=== PATIENT | male | born 1960 | race Caucasian/White ===

== ENCOUNTER 2017-01-21 13:44 | Emergency (ER) | payer OTHER ==
[2017-01-21] MEDS ORDERED: NS 0.9% 1000 ML* 1,000 ML IV ONE (14:00)
--- NOTE | 2017-01-21 14:40 | RAD ---
INDICATION: Visual changes -resolved COMPARISON: None TECHNIQUE: Noncontrast axial source images were acquired from the skull base to the vertex. FINDINGS: Ventricles/sulci: The ventricles and cisterns are normal in size and configuration for age. Brain parenchyma: There is no focal parenchymal finding, evidence of intracranial mass, or intracranial mass effect. Intracranial hemorrhage:None. Extra-axial spaces: There are no abnormal extra axial fluid collections or evidence of extra-axial mass. Calvarium: There is no calvarial fracture or other calvarial abnormality. Scalp: There is no evidence of scalp or extracalvarial soft tissue abnormality. Paranasal sinuses/mastoid: The paranasal sinuses and mastoid air cells are clear. Other: None. IMPRESSION: NEGATIVE EXAMINATION
--- NOTE | 2017-01-21 14:40 | RAD ---
Indication: Vision abnormality. 2 views of the chest including dual energy PA views demonstrates no mediastinal shift. Heart is of normal size and configuration. Lung brown demonstrate no pleural fluid, pneumonia or pneumothorax. No change since May 21, 2016. IMPRESSION: No active cardiopulmonary disease is noted.
[2017-01-21 15:27] LABS: Hematocrit 42 % (42-52); Hemoglobin 14.2 g/dl (14.0-18.0); Mean Corpuscular HGB Conc 34 g/dl (31-36); Mean Corpuscular Hemoglobin 32 pg (27-31); Mean Corpuscular Volume 93 fL (80-94); Mean Platelet Volume 8 um3 (7.4-10.4); Red Blood Count 4.52 10^6/ul (4.0-5.4); Red Cell Distribution Width 13 % (10.5-15); White Blood Count 7.9 10^3/ul (3.5-10.8)
[2017-01-21 15:42] LABS: Albumin 3.9 g/dL (3.2-5.2); BUN/Creatinine Ratio 24.3 (8-20); EGFR African American 139.7 (>60); EGFR Non-African American 108.6 (>60); Globulin 2.6 g/dL (2-4); Potassium 3.6 mmol/L (3.5-5.0); Total Bilirubin 0.5 mg/dL (0.2-1.0); Total Protein 6.5 g/dL (6.4-8.9)
[2017-01-21 16:03] LABS: C Reactive Protein 1.29 mg/L (< 5.00); HDL Cholesterol 45.9 mg/dL
[2017-01-21 16:59] LABS: Urine Bilirubin Negative (Negative); Urine Glucose Negative (Negative); Urine Nitrite Negative (Negative)
[2017-01-21] MEDS ORDERED: Iohexol 350* (CONTRAST) 500 ML MDV IV ONE (17:34)
[2017-01-21 17:38] VITALS: BP 130/82
[2017-01-21 17:56] LABS: Erythrocyte Sed Rate 9 mm/Hr (0-20)
--- NOTE | 2017-01-21 18:32 | RAD ---
INDICATION: Visual changes-resolved COMPARISON: CT brain same date TECHNIQUE: Axial source images were acquired with coronal and sagittal reconstructions. CT angiographic technique was utilized with injection of 80 mL Omnipaque 350. FINDINGS: Aortic arch: There are no CT angiogram abnormalities of the arch or the great vessels arising from the arch. Right carotid: The internal carotid artery, carotid bifurcation, extracranial portions of the internal carotid artery, carotid artery at the skull base, carotid siphon, and carotid termination appear normal. Left carotid:The internal carotid artery, carotid bifurcation, extracranial portions of the internal carotid artery, carotid artery at the skull base, carotid siphon, and carotid termination appear normal. Right middle and anterior cerebral arteries: There are no CT angiographic abnormalities of the middle or anterior cerebral arteries. Left middle and anterior cerebral arteries: There are no CT angiographic abnormalities of the middle or anterior cerebral arteries Right vertebral: The CT angiographic appearance of the vertebral artery is normal. Left vertebral: The CT angiographic appearance of the vertebral artery is normal. Basilar artery: The basilar artery and basilar tip appear normal. Posterior cerebral arteries: The distal distribution of the right and left posterior cerebral arteries is normal. There is normal variant with origin of the right posterior cerebral artery [place]: The CT angiographic appearance of the [place] is normal. Source images show no evidence of mass or adenopathy within the neck. There are no focal parenchymal abnormalities or abnormal areas of enhancement. Incidental note is made of left shoulder arthroplasty. IMPRESSION: NO CT ANGIOGRAPHIC ABNORMALITIES. CPT II Codes: 3100F RS
--- NOTE | 2017-01-22 00:17 | ED ---
Emmanuel Rice SooYoung, scribed for Mireya Burgess MD on 01/21/17 at 1402 . Neurological HPI - HPI Summary HPI Summary: A 56 y/o M presents to ED after possible stroke onset approx 1230. Sx have spontaneously resolved. Sx began with R eye waves lasting approx 1 hour before resolving. He denies any change to his L eye. Associated sx: mild BURKS, unsteady gait. Denies: numbness, tingling, CP, SOB. Pt is under recent stress, was on the way to his sister's today. Sx are similar to previous episode that occurred at end of 10/2016, with sx lasting longer. He was not seen at a hospital that time, was seen at doctor's office, [facility] in [place]. Takes daily aspirin, Celebrex. NKA. Per , pt usually has low BP, it is elevated at bedside. - History of Current Complaint Chief Complaint: EDGeneral Stated Complaint: POSSIBLE MINI STROKE Time Seen by Provider: 01/21/17 14:01 Hx Obtained From: Patient, Family/Grain Sacker - Onset/Duration: Sudden Onset, Started hours ago, Resolved Timing: Constant Onset Severity: Mild Current Severity: None Headache Location: Diffuse (Right) Pain Intensity: 0 Pain Scale Used: 0-10 Numeric Character: Visual Changes - R eye "waves" Episode Lasting: Hours - approx 1 hour Aggravating: Stress Alleviating: Spontanious Resolution Associated Signs and Symptoms: Positive: Unsteady Gait, Visual Changes - R eye "waves", Headache - mild. Negative: Numbness - and neg tingling, Chest Pain, Shortness of Breath TPA Considered: No - sxs resolved upon initial evaluation Similar Episode/Dx as: "stroke" by PCP, no imaging or labs done - Additional Pertinent History Primary Care Physician: [facility] - Allergy/Home Medications Allergies/Adverse Reactions: Allergies Allergy/AdvReac Type Severity Reaction Status Date / Time No Known Allergies Allergy Verified 01/21/17 13:46 PMH/Surg Hx/FS Hx/Imm Hx Previously Healthy: No Endocrine/Hematology History: Reports: Hx Anticoagulant Therapy - ASA 81 qd Musculoskeletal History: Reports: Hx Arthritis, Other Musculoskeletal History - BONE SPURS IN NECK- HAD SURGERY FOR 30 YEARS AGO Sensory History: Reports: Hx Contacts or Glasses - READING GLASSES, Hx Hearing Aid - BILATERAL Opthamlomology History: Reports: Hx Contacts or Glasses - READING GLASSES Neurological History: Reports: Other Neuro Impairments/Disorders - TIA or CVA? - Surgical History Surgery Procedure, Year, and Place: 1990-LEFT HAND- [facility]. HERNIA REPAIR - [facility]. NECK SURGERY- 30 YEARS AGO- [facility]. SHOULDER - [facility]. SHOULDER REPLACEMENT- [facility]-2013 Hx Anesthesia Reactions: No Infectious Disease History: Denies: Traveled Outside the [place] in Last 30 Days - Family History Known Family History: Positive: Other - pos: [place] - sister; no FHx CVA/TIA - Social History Occupation: Employed Full-time Lives: With Family Alcohol Use: None Hx Substance Use: No Substance Use Type: Reports: None Hx Tobacco Use: Yes Smoking Status (MU): Former Smoker Amount Used/How Often: CIGARS X 20 YEARS Have You Smoked in the Last Year: No Review of Systems Negative: Fever Positive: Other - pos: R eye "waves". Negative: Blurred Vision Negative: Chest Pain Negative: Shortness Of Breath Neurological: Other - pos: unsteady gait Positive: Headache - mild. Negative: Numbness - and neg: tingling Psychological: Other - pos: recent stress, today is sister's All Other Systems Reviewed And Are Negative: Yes Physical Exam Triage Information Reviewed: Yes Vital Signs On Initial Exam: Initial Vitals Temp Pulse Resp BP Pulse Ox 98.5 F 78 16 130/78 97 01/21/17 13:46 01/21/17 13:46 01/21/17 13:46 01/21/17 13:46 01/21/17 13:46 Vital Signs Reviewed: Yes Appearance: Positive: Well-Appearing, No Pain Distress, Well-Nourished Skin: Positive: Warm, Skin Color Reflects Adequate Perfusion Head/Face: Positive: Normal Head/Face Inspection Eyes: Positive: EOMI, XAVI, Conjunctiva Clear ENT: Positive: Normal ENT inspection Neck: Positive: Supple, Nontender, Other: - no bruit Respiratory/Lung Sounds: Positive: Clear to Auscultation, Breath Sounds Present , Other - no respiratory distress Cardiovascular: Positive: RRR, Other - pulses normal, brisk capillary refill. Negative: Murmur Musculoskeletal: Positive: Strength/ROM Intact Neurological: Positive: Sensory/Motor Intact, Alert, Oriented to Person Place, Time, CN Intact II-III, Facial Symmetry, Speech Normal. Negative: Abnormal Gait , Facial Droop, Focal Deficit @, Slurred Speech Psychiatric: Positive: Normal Diagnostics - Vital Signs Vital Signs Temp Pulse Resp BP Pulse Ox 01/21/17 13:46 98.5 F 78 16 130/78 97 - Laboratory Lab Results: Lab Results 01/21/17 01/21/17 01/21/17 Range/Units 15:20 15:20 15:20 WBC 7.9 (3.5-10.8) 10^3/ul RBC 4.52 (4.0-5.4) 10^6/ul Hgb 14.2 (14.0-18.0) g/dl Hct 42 (42-52) % MCV 93 (80-94) fL MCH 32 H (27-31) pg MCHC 34 (31-36) g/dl RDW 13 (10.5-15) % Plt Count 216 (150-450) 10^3/ul MPV 8 (7.4-10.4) um3 Neut % (Auto) 64.7 (38-83) % Lymph % (Auto) 24.2 L (25-47) % Early % (Auto) 6.5 (1-9) % Eos % (Auto) 3.7 (0-6) % Baso % (Auto) 0.9 (0-2) % Absolute Neuts (auto) 5.1 (1.5-7.7) 10^3/ul Absolute Lymphs (auto) 1.9 (1.0-4.8) 10^3/ul Absolute Monos (auto) 0.5 (0-0.8) 10^3/ul Absolute Eos (auto) 0.3 (0-0.6) 10^3/ul Absolute Basos (auto) 0.1 (0-0.2) 10^3/ul Absolute Nucleated RBC 0 10^3/ul Nucleated RBC % 0 ESR 9 (0-20) mm/Hr INR (Anticoag Therapy) 1.00 (0.89-1.11) APTT 27.2 (26.0-36.3) seconds Sodium 140 (133-145) mmol/L Potassium 3.6 (3.5-5.0) mmol/L Chloride 109 (101-111) mmol/L Carbon Dioxide 25 (22-32) mmol/L Anion Gap 6 (2-11) mmol/L BUN 18 (6-24) mg/dL Creatinine 0.74 (0.67-1.17) mg/dL Est GFR ( Amer) 139.7 (>60) Est GFR (Non-Af Amer) 108.6 (>60) BUN/Creatinine Ratio 24.3 H (8-20) Glucose 92 (70-100) mg/dL Lactic Acid (0.5-2.0) mmol/L Calcium 9.0 (8.6-10.3) mg/dL Total Bilirubin 0.50 (0.2-1.0) mg/dL AST 13 (13-39) U/L ALT 10 (7-52) U/L Alkaline Phosphatase 102 (34-104) U/L Troponin I 0.00 (<0.04) ng/mL C-Reactive Protein 1.29 (< 5.00) mg/L Total Protein 6.5 (6.4-8.9) g/dL Albumin 3.9 (3.2-5.2) g/dL Globulin 2.6 (2-4) g/dL Albumin/Globulin Ratio 1.5 (1-3) Triglycerides 187 mg/dL Cholesterol 174 mg/dL LDL Cholesterol 91 mg/dL HDL Cholesterol 45.9 mg/dL Urine Color Urine Appearance Urine pH (5-9) Ur Specific [place] (1.010-1.030) Urine Protein (Negative) Urine Ketones (Negative) Urine Blood (Negative) Urine Nitrate (Negative) Urine Bilirubin (Negative) Urine Urobilinogen (Negative) Ur Leukocyte Esterase (Negative) Urine Glucose (Negative) 01/21/17 01/21/17 Range/Units 15:20 16:50 WBC (3.5-10.8) 10^3/ul RBC (4.0-5.4) 10^6/ul Hgb (14.0-18.0) g/dl Hct (42-52) % MCV (80-94) fL MCH (27-31) pg MCHC (31-36) g/dl RDW (10.5-15) % Plt Count (150-450) 10^3/ul MPV (7.4-10.4) um3 Neut % (Auto) (38-83) % Lymph % (Auto) (25-47) % Early % (Auto) (1-9) % Eos % (Auto) (0-6) % Baso % (Auto) (0-2) % Absolute Neuts (auto) (1.5-7.7) 10^3/ul Absolute Lymphs (auto) (1.0-4.8) 10^3/ul Absolute Monos (auto) (0-0.8) 10^3/ul Absolute Eos (auto) (0-0.6) 10^3/ul Absolute Basos (auto) (0-0.2) 10^3/ul Absolute Nucleated RBC 10^3/ul Nucleated RBC % ESR (0-20) mm/Hr INR (Anticoag Therapy) (0.89-1.11) APTT (26.0-36.3) seconds Sodium (133-145) mmol/L Potassium (3.5-5.0) mmol/L Chloride (101-111) mmol/L Carbon Dioxide (22-32) mmol/L Anion Gap (2-11) mmol/L BUN (6-24) mg/dL Creatinine (0.67-1.17) mg/dL Est GFR ( Amer) (>60) Est GFR (Non-Af Amer) (>60) BUN/Creatinine Ratio (8-20) Glucose (70-100) mg/dL Lactic Acid 0.9 (0.5-2.0) mmol/L Calcium (8.6-10.3) mg/dL Total Bilirubin (0.2-1.0) mg/dL AST (13-39) U/L ALT (7-52) U/L Alkaline Phosphatase (34-104) U/L Troponin I (<0.04) ng/mL C-Reactive Protein (< 5.00) mg/L Total Protein (6.4-8.9) g/dL Albumin (3.2-5.2) g/dL Globulin (2-4) g/dL Albumin/Globulin Ratio (1-3) Triglycerides mg/dL Cholesterol mg/dL LDL Cholesterol mg/dL HDL Cholesterol mg/dL Urine Color Yellow Urine Appearance Clear Urine pH 5.0 (5-9) Ur Specific [place] 1.024 (1.010-1.030) Urine Protein Negative (Negative) Urine Ketones Negative (Negative) Urine Blood Negative (Negative) Urine Nitrate Negative (Negative) Urine Bilirubin Negative (Negative) Urine Urobilinogen Negative (Negative) Ur Leukocyte Esterase Negative (Negative) Urine Glucose Negative (Negative) Result Diagrams: 01/21/17 15:20 01/21/17 15:20 Lab Statement: Any lab studies that have been ordered have been reviewed, and results considered in the medical decision making process. - Radiology CXR Xray Interpretation: No Acute Changes - IMPRESSION: No active cardiopulmonary dz. Radiology Interpretation Completed By: Radiologist - CT BRAIN CT CT Interpretation: No Acute Changes - IMPRESSION: negative exam. CT Interpretation Completed By: Radiologist HEAD/NECK CTA CT Interpretation: No Acute Changes - IMPRESSION: No CT angiographic abnormalities. CT Interpretation Completed By: Radiologist - EKG 1537 Cardiac Rate: Bradycardia - 59 bpm EKG Rhythm: Sinus Bradycardia EKG Interpretation: nml AVIVCD, nml QTC, left axis -23. No acute changes. No prev EKG. EKG Comparison: Other Re-Evaluation - Re-Evaluation 1 Re-Evaluation Time: 14:15 Change: Worse Comment: Pt notes having bilat LE cramping. 2 Re-Evaluation Time: 15:02 Change: Improved Comment: Discussing imaging results with pt. States LE cramping went away. Per , pt has BURKS, pt denies, states his gives him a BURKS. 3 Re-Evaluation Time: 16:45 Change: Improved Comment: Discussing results and neuro consult with pt. Course/Dx - Course Course Of Treatment: Allergies noted. Pt medication reviewed. Pre-Hypertensive BP reading (130/78); patient referred to PCP for follow-up. Pt is a 56 y/o M presents to ED after possible stroke onset approx 1230. Sx have spontaneously resolved. Sx began with R eye waves lasting approx 1 hour before resolving. He denies any change to his L eye. Associated sx: mild BURKS, unsteady gait. Denies: numbness, tingling, CP, SOB. Pt is under recent stress, was on the way to his sister's today. Sx are similar to previous episode in 10/2016, did not go to hospital, went to doctor's office in [place]. Takes daily aspirin, Celebrex. NKA. Per , pt usually has low BP, it is elevated at bedside. Trop is 0.00. UA results are all WNL. Brain CT is neg. CXR is neg. EKG shows sinus manuel at 59 bpm, nml AVIVCD, nml QTC, left axis -23. No acute changes. No prev EKG available for comparison. Dr. Dior consulted on pt in ED and recommended CTA head and neck to eval for dissection with pt's sxs of unsteady gait and the visual sxs. CTAs were neg. Dr. Dior recommends oral magnesium daily and ASA 81 mg daily and prn follow up. Probable ocular migraine. - Differential Dx Differential Diagnoses Neuro: Positive: Anxiety, Cerebrovascular Accident, Headache, Migraine, Transient Ischemic Attack - Diagnoses Provider Diagnoses: Ocular migraine - Physician Notifications Discussed Care Of Patient With: Leticia Dior - neuro Time Discussed With Above Provider: 16:38 Instructed by Provider To: MD Will See In ED Discharge - Discharge Plan Condition: Stable Disposition: HOME Patient Education Materials: Ocular Migraine (ED) Referrals: Brandee Cedillo NP [Primary Care Provider] - (Follow up for blood pressure further evaluation within 1 day - 4 weeks.) Additional Instructions: You were evaluated with blood work, EKG, Chest xray, CT scan of your brain and a CTA of your brain and neck. These results did not reveal any sign of a stroke or a dissection or an AVM or aneurysm. Dr. Dior was your neurologist in the ER and she recommends that you take aspirin 81mg daily and magnesium 400mg daily. You may follow up with her office as needed. Your blood pressure reading today was 130/78, which is PRE-HYPERTENSIVE. Please follow-up with your primary care provider within 4 weeks for blood pressure readings and further evaluation. Return to the ER for any new or worsening symptoms. Consult Consult: 1730: Consult with Dr. Dior. Recommends head/neck CTA. As well as aspirin 81mg to go home, and Mg 400mg daily. The documentation as recorded by the Emmanuel chambers SooYoung accurately reflects the service I personally performed and the decisions made by me, Mireya Burgess MD.
--- NOTE | 2017-01-22 00:32 | CONS ---
CONSULTATION REPORT: DATE OF CONSULT: 01/21/17 - EMERGENCY DEPT REASON FOR CONSULT: Change in vision and headache. HISTORY OF PRESENT ILLNESS: Mr. David Savage is a 56-year-old gentleman with a history of arthritis and multiple surgeries, who came to the emergency room today with change in vision in his right eye followed by headache. He had had a similar episode on , which he thinks may have been in his left eye. He saw his primary doctor who started him on aspirin, raised question of migraine, but also told him it could be stroke. He saw an division chief and no pathology was found. Today, was the day of his sister's and he came to the emergency room with these symptoms. Mr. Savage indicates that he was driving when the symptoms began. It was a waviness in his right eye and it made difficult for him to focus. He covered and uncovered the eyes and said it was only his right eye. However, when he tried to close his right eye and look out his left eye and drive, it was difficult. The symptoms of his eye symptoms lasted for about an hour. While he was still having them, he developed headache over his right eye with a soreness that then went across the forehead. There was no throbbing, nausea, vomiting or photophobia. He has had history of intermittent headaches across the forehead for which he is taking Tylenol; he indicates it is not very often, his thinks it is more often. Each time he had these symptoms, he was a little wobbly. He is unclear if he had headaches associated with the previous symptoms. He denies any new numbness or weakness in arms or legs, change in coordination or gait, chest pain, chest pressure or palpitations. PAST MEDICAL HISTORY: Mr. Savage's past medical history includes arthritis for which he has had a right hip replace-ment with Dr. Vang in May 2016, left shoulder replacement, he has had surgery on his neck for a bone spur, hiatal hernia. He has an abdominal scar, they are not sure why he has that, from when he was a child. MEDICATIONS: Include: 1. Celebrex 200 mg p.o. every day. 2. Vitamin D, which is a prescription supplementation, and has just received a letter to go on to 2000 international units a day. In the past he had taken magnesium for leg cramps. ALLERGIES: He has no known drug allergies. FAMILY HISTORY: Includes a mother who in her 60s. She had throat cancer problems as well was a smoker and had breathing problems. He is estranged from his father. His sister just at age 53 of breast cancer. He has other siblings, but does not know their health problems. He has 3 children who are alive and well and his is at his side. 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 SOCIAL HISTORY: Mr. Savage does not smoke. He smoked cigars in the past and stopped over 10 years ago. He does not drink alcohol and denies any illicit drugs. PHYSICAL EXAMINATION: On examination, Mr. Savage's most recent blood pressure was 135/82, his pulse was 58, respiratory rate was 17, saturation was 97%, temperature was 97.8 degrees Fahrenheit. He had a regular cardiac rhythm. His lungs are clear to auscultation. There was no evidence of peripheral edema. His peripheral pulses were intact. He was awake, alert, articulate, had normal language function. His pupils are equal and responsive to light. His fundi are flat. He has full extraocular movements, but no nystagmus, full brown to confrontation. His facial expression, sensation, and hearing were equal. Palate was upgoing. Tongue was midline. Sternocleidomastoid and trapezius were 5/5 in strength. There was normal bulk and tone. No pronator drift. Full strength in the upper and lower extremities, with normal [id number] and srdy-ec-prox movement. Vibration sensation was decreased to large toes by 10 seconds. Proprioception was intact. There were no asymmetries to pinprick, cold or light touch. Reflexes were 2+ and symmetric, with flexor response to the toes. His Romberg was negative. He performed tandem gait without difficulty, forward and backwards; could walk on his heels and his toes. DIAGNOSTIC STUDIES/LAB DATA: Includes CBC with low lymphocyte percentage, elevated MCH, but otherwise normal. His INR and PTT were normal. His complete metabolic panel showed an elevated BUN and creatinine ratio at 24.3. His lipid profile showed cholesterol of 174, LDL was 91, triglycerides 187, HDL 45.9. His urinalysis was negative. Chest x-ray did not show any significant pathology. His CT of the brain was negative for stroke bleed. This film was reviewed directly. IMPRESSION: Mr. Savage is a 56-year-old gentleman presenting with vision changes in one eye, followed by headaches with a sense of being wobbly. The timing of the wavy vision followed by headache is very suggestive of migrainous phenomenon. The fact it was only one eye, however, does raise question of eye pathology and in review of neuro anatomy, the most concerning would be that of pathology in the carotid artery and dissection. Accordingly, I have asked for a CTA of the brain and neck. Of note he is already on aspirin and recent studies have suggested this is sufficient treatment. There would be, however, further restrictions in lifting if pathology is found. The fact that when he closed one eye, he still had some difficulty seeing via the left eye, although he denied any wavy lines. The resolution of these symptoms, followed by a headache suggests this could be a migrainous phenomenon. If indeed no pathology is found, then I would suggest magnesium 400 to 500 mg p.o. every day. He is using Tylenol as needed, and education was given regarding rebound headaches. This all occurs in the setting of significant stress. No clear stress was noted on other than they were hosting a constitution party and this was not his favorite thing to do. One hour was spent in patient care. Education was given to family. All questions were answered. Dr. Burgess in the emergency room will be obtaining the CTA of the brain and neck and will call if further neurology input is needed. [id number]/[facility] #: [id number] [place]
== END 2017-01-21 19:30 | disposition home or self-care (01) ==
LOC: ED 13:44
DX: G43.819 Other migraine, intractable, without status migrainosus (principal); R26.81 Unsteadiness on feet; Z79.82 Long term (current) use of aspirin; Z96.619 Presence of unspecified artificial shoulder joint; Z87.891 Personal history of nicotine dependence
CPT/HCPCS: 36415; 70450; 70496; 70498; 71020; 80053; 80061; 81003; 83605; 84484; 85025; 85610; 85652; 85730; 86140; 93005; 96360; 99282; Q9967

== ENCOUNTER 2017-03-11 14:35 | Emergency (ER) | payer SELFPAY ==
[2017-03-11] MEDS ORDERED: Morphine INJ* 4 MG/ML 1 ML CARPUJECT IV ONE (15:39)
[2017-03-11] MEDS ORDERED: Ondansetron INJ* 2 MG/ML VIAL IV ONE (15:39)
--- NOTE | 2017-03-11 16:14 | ED ---
Upper Extremity Pain - HPI Summary HPI Summary: Rt hand dominant pt here w/ Rt arm fracture. Fell onto Rt shoulder this morning around 7:00 at work - accidental mechanical fall. Went to a local convenient care and XR showed fx - pt believes it was at the top of the humerus, just below the shoulder. Has some tingling in his fingers and points out his hand is swollen compared to other (agree). He denies numbness, weakness here. Moving fingers, wrist well. Elbow is NTTP and w/o pain. Pain w/ Rt arm and shoulder. Denies head injury, neck pain, back pain, chest pain or abdominal pain. Received an IM of what pt believes was toradol earlier this morning at . He is in pain now nad would like something. Has been icing. Decided not to go to local ED despite recommendation from provider as he wanted to be back in his home town. 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 - - Allergies/Home Medications Allergies/Adverse Reactions: Allergies Allergy/AdvReac Type Severity Reaction Status Date / Time No Known Allergies Allergy Verified 01/21/17 13:46 PMH/Surg Hx/FS Hx/Imm Hx Previously Healthy: Yes Endocrine/Hematology History: Denies: Hx Anticoagulant Therapy - ASA 81 qd, Hx Diabetes, Hx Anemia Cardiovascular History: Denies: Hx Hypertension GI History: Denies: Hx Gastrointestinal Bleed Musculoskeletal History: Reports: Hx Arthritis, Hx Joint Replacement - Lt shoulder, Rt hip, Other Musculoskeletal History - BONE SPURS IN NECK- HAD SURGERY FOR 30 YEARS AGO Sensory History: Reports: Hx Contacts or Glasses - READING GLASSES, Hx Hearing Aid - BILATERAL Opthamlomology History: Reports: Hx Contacts or Glasses - READING GLASSES Neurological History: Reports: Other Neuro Impairments/Disorders - TIA or CVA? - Surgical History Surgery Procedure, Year, and Place: 1990-LEFT HAND- [facility]. HERNIA REPAIR - [facility]. NECK SURGERY- 30 YEARS AGO- [facility]. SHOULDER - [facility]. SHOULDER REPLACEMENT- [place]-2013 Hx Anesthesia Reactions: No Infectious Disease History: No Infectious Disease History: Denies: Traveled Outside the [place] in Last 30 Days - Family History Known Family History: Positive: Other - pos: [place] - sister; no FHx CVA/TIA - Social History Occupation: Employed Full-time Lives: With Family Alcohol Use: None Hx Substance Use: No Substance Use Type: Reports: None Hx Tobacco Use: Yes Smoking Status (MU): Former Smoker Amount Used/How Often: CIGARS X 20 YEARS Have You Smoked in the Last Year: No Review of Systems Constitutional: Negative Negative: Fever, Chills, Fatigue Cardiovascular: Negative Negative: Chest Pain Respiratory: Negative Negative: Shortness Of Breath, Cough Gastrointestinal: Negative Negative: Vomiting, Nausea Positive: no symptoms reported Musculoskeletal: Other - see HPI Skin: Negative Neurological: Other - see HPI Psychological: Normal All Other Systems Reviewed And Are Negative: Yes Physical Exam Triage Information Reviewed: Yes Vital Signs On Initial Exam: Initial Vitals Temp Pulse Resp BP Pulse Ox 98.7 F 116 20 151/106 96 03/11/17 14:44 03/11/17 14:44 03/11/17 14:44 03/11/17 14:44 03/11/17 14:44 Vital Signs Reviewed: Yes Appearance: Positive: Well-Appearing, Well-Nourished, Pain Distress - mild at rest in sling, sitting on stretcher Skin: Positive: Warm, Dry - no erythema/ecchymosis over affected area however only partial area observed as pt is wearing shirt w/ arm in sling Head/Face: Positive: Normal Head/Face Inspection Eyes: Positive: Normal, EOMI, XAVI, Conjunctiva Clear Neck: Positive: Nontender Respiratory/Lung Sounds: Positive: Breath Sounds Present Cardiovascular: Positive: Pulses are Symmetrical in both Upper and Lower Extremities Musculoskeletal: Positive: Strength/ROM Intact - fingers, wrist, Limited @ - elbow d/t sling and pain in arm w/ movment; limited movment in Rt shoulder, Pain @ - Rt proximal humerus - elbow, clavicle forearm, wrist, hand NTTP; spine of scapula NTTP; spinous pp and back/ribs NTTP Neurological: Positive: Normal, Sensory/Motor Intact, Alert, Oriented to Person Place, Time, CN Intact II-III Psychiatric: Positive: Normal Diagnostics - Vital Signs Vital Signs Temp Pulse Resp BP Pulse Ox 03/11/17 16:02 16 03/11/17 14:44 98.7 F 116 20 151/106 96 - Laboratory Lab Statement: Any lab studies that have been ordered have been reviewed, and results considered in the medical decision making process. Course/Dx - Course Course Of Treatment: Pt presents w/ Rt arm fx - XR report states minially displaced fx involving the proximal most portion of the Rt chemo metaphysis. Agree w/ read. Discussed w/ results w/ pt and provided pic of XR as well as report. Spoke w/ Dr. Jiang - sling, rest, pain control, move hand/finger and f/ u Tuesday or . Call Tuesday to schedule appt. Pt and agree w/ plan. Reviewed danger s/sx of when to return to ED. - Diagnoses Provider Diagnoses: Closed fracture of right proximal humerus - Physician Notifications Discussed Care of Patient With: Genaro Jiang Discharge - Discharge Plan Condition: Stable Disposition: HOME Prescriptions: Ibuprofen TAB* [Motrin TAB* 600 MG] 600 mg PO Q6H PRN #20 tab PRN Reason: Pain oxyCODONE/Acetamin 5/325 MG* [Percocet 5/325 TAB*] 1 tab PO Q6H PRN #20 tab MDD 4 PRN Reason: Pain Patient Education Materials: Proximal Humerus Fracture (ED) Forms: *Work Release Referrals: Genaro Jiang MD [Medical Doctor] - Additional Instructions: Rest, ice, keep in sling until told otherwise by orthopedics. Call Tuesday to schedule an appointment. You may take ibuprofen for pain and swelling - DO NOT TAKE CELEBREX IF YOU ARE TAKING THIS MEDICATION You may also take percocet for intolerable pain. Make sure to move your finger, wrist to prevent stiffness and swelling *If you develop coolness of your hand, numbness, weakness, excessive swelling, return to ED
--- NOTE | 2017-03-11 17:13 | RAD ---
INDICATION: Trauma. COMPARISON: Right humerus pain after a fall TECHNIQUE: 2 views of the right shoulder and 2 views of the right humerus were obtained. FINDINGS: There is a minimally complex and impacted fracture at the proximal right humeral metaphysis just below the surgical neck of the humerus. There is a very small degree of valgus angulation at the fracture site. The remaining visualized bones are intact and appropriately aligned. IMPRESSION: MINIMALLY DISPLACED FRACTURE INVOLVING THE PROXIMAL MOST PORTION OF THE RIGHT HUMERAL METAPHYSIS.
[2017-03-11] MEDS ORDERED: Ibuprofen TAB* 800 MG PO ONE (17:31)
[2017-03-11] MEDS ORDERED: oxyCODONE/Acetamin 5/325 MG* TAB PO ONE (17:31)
[2017-03-11 18:08] VITALS: BP 119/79
== END 2017-03-11 18:42 | disposition home or self-care (01) ==
LOC: ED 14:35
DX: S42.201A Unspecified fracture of upper end of right humerus, initial encounter for closed fracture (principal); W19.XXXA Unspecified fall, initial encounter; Y93.89 Activity, other specified; Y92.89 Other specified places as the place of occurrence of the external cause; Y99.0 Civilian activity done for income or pay; E11.9 Type 2 diabetes mellitus without complications; Z79.82 Long term (current) use of aspirin; Z96.612 Presence of left artificial shoulder joint; Z96.641 Presence of right artificial hip joint; Z87.891 Personal history of nicotine dependence
CPT/HCPCS: 96374; 96375; 99282; A9270-GY; J2270; J2405

== ENCOUNTER 2017-03-16 10:51 | Day surgery (SDC) | payer OTHER ==
--- NOTE | 2017-03-15 13:17 | HP ---
Amended report to enter cosigning doctor. PREOPERATIVE HISTORY AND PHYSICAL: DATE OF ADMISSION/SURGERY: 03/16/17 ATTENDING SURGEON: Genaro Jiang MD* (dictated by BARBRA Whatley). PROCEDURE: Right shoulder proximal humerus open reduction and internal fixation. CHIEF COMPLAINT: Right shoulder pain. HISTORY OF PRESENT ILLNESS: David is a 56-year-old male who presents to the clinic after an injury at work on 03/11/17. He stepped off equipment, lost his balance and fell on to the lateral aspect of his right shoulder. He had immediate pain. He was sent to urgent care who then sent him to the ER. He was given a sling and x- rays revealed the proximal humerus fracture. Since that time, he has been compliant with the sling and had continuous 8/10 aching pain that is worse with any movement of the arm. He has been using 1 Percocet 5/325 mg and ibuprofen and staggering them every 3 hours, which is minimally helpful for the pain. He reports swelling in his hand. He also reports numbness and tingling in all of his fingers since the injury, he reports no prior pain or problems with his right shoulder prior to this injury. He has no prior surgery. He does not smoke. He is not diabetic. He does have a history of a left shoulder replacement and has very limited range of motion of the left arm, therefore relies on his right arm frequently. He denies fever, chills, and he is doing well otherwise. PAST MEDICAL HISTORY: Arthritis and diverticulitis. PAST SURGICAL HISTORY: Hand surgery, hernia repair, neck surgery, left shoulder surgery, left shoulder replacement, total hip replacement, and finger surgery. MEDICATIONS: 1. Cyclobenzaprine 10 mg 1 by mouth 2 to 3 times a day as needed. 2. Zithromax 500 mg day 1, 250 mg days 2 through 5. 3. Tylenol with Codeine No. 3 of 330 mg 1 by mouth as needed orally for the pain every 4 to 6 hours. 4. Colace 100 mg 1 by mouth twice a day. 5. Vitamin D 50,000 units 1 by mouth daily. 6. Celebrex 200 mg 1 by mouth twice a day. 7. Magnesium 500 mg 1 by mouth every day. 8. Aspirin 81 mg 1 by mouth daily. ALLERGIES: No known drug allergies. FAMILY HISTORY: Positive for cancer in his mother, sister, and aunt and rheumatoid arthritis in his grandmother. SOCIAL HISTORY: The patient lives with his . 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 He is a former smoker, he quit 15 years ago. He denies alcohol use. He denies illegal drug use. He is right hand dominant. REVIEW OF SYSTEMS: A 14-point review of systems was reviewed with the patient. Positive for blurred vision due to occasional ocular migraines and the current complaint, otherwise negative. PHYSICAL EXAMINATION GENERAL: Well-developed, well-nourished 56-year-old male, in no acute distress. Alert and oriented x3. Appropriate mood and affect. VITAL SIGNS: Height 72, weight 210. Blood pressure 126/80, respiratory rate 18 , temperature 98.5. BMI 28.8. HEENT: Normocephalic, atraumatic. PERRLA. Throat clear. NECK: Supple. PULMONARY: Lungs clear to auscultation bilaterally. No wheezing, rhonchi, or rales. CARDIAC: Regular rate and rhythm. S1 and S2. No murmurs, gallops, or rubs. No edema. ABDOMEN: Positive bowel sounds, soft, nontender. MUSCULOSKELETAL: Right upper extremity; the skin is intact of the shoulder; however, he has significant bruising of the right shoulder. Full range of motion of the elbow, wrist, and hand. Able to make a full fist. He has swelling of the right hand. Sensation is intact to light touch distally, +2 radial pulse. Left upper extremity; skin intact. No warmth or erythema. Nontender to palpation. He has limited forward flexion and abduction to 45 degrees, +2 radial pulse. Sensation is intact to light touch distally. NEUROLOGIC: Alert and oriented x3. Cranial nerves grossly intact. Sensation is intact to light touch. STUDIES: Multiple view x-rays of the right shoulder reveal a displaced right proximal humerus fracture. IMPRESSION: Right arm proximal humerus fracture. PLAN: David is a 56-year-old male with right proximal humerus fracture. He is scheduled for a right shoulder proximal humerus open reduction and internal fixation with Dr. Jiang on 03/16/17 pending Workmen's Comp approval. Postop course and surgical versus nonsurgical options were discussed with the patient. Since he has minimal use of his left arm, the right shoulder surgery is required to ensure that he gains as much use of his right arm back as possible. Risks of surgery to include stiffness, scarring, injury to blood vessels, nerves, surrounding structures, need for hardware removal in the future, risk of anesthesia, bleeding, infection, and blood clots were discussed with the patient. The patient has agreed to undergo surgery. He has been off his aspirin since in case he needed surgery. Percocet was sent to his pharmacy for postop pain management. He will follow up with Dr. Jiang 10 to 14 days postop. BARBRA WHATLEY [id number]/[facility] #: [id number] ST[place]
[~2017-03-16 10:51] MED LIST: Buffered Lidocaine 0.9% SYRIN* 5 ML/SYR SYRINGE INTRADERM ONE; Famotidine IV* 10 MG/ML 2 ML (20 mg) IV ONE
[2017-03-16] MEDS ORDERED: ceFAZolin 2 GM PREMIX (*) 50 ML IVPB ONE (11:11)
[2017-03-16] MEDS ORDERED: Famotidine IV* 10 MG/ML 2 ML (20 mg) ONE (11:11)
[2017-03-16] MEDS ORDERED: Buffered Lidocaine 0.9% SYRIN* 5 ML/SYR SYRINGE ONE (11:11)
[2017-03-16] MEDS ORDERED: Midazolam* 1 MG/ML 5 ML VIAL (5 MG) ONE ×2 (11:59→13:36)
[2017-03-16] MEDS ORDERED: fentaNYL* 50 MCG/ML 2 ML VIAL (100 MCG VIAL) ONE ×4 (11:59→13:55)
[2017-03-16] MEDS ORDERED: Dexamethasone IV* 4 MG/ML 1 ML (4 MG) ONE ×2 (12:00→13:36)
[2017-03-16] MEDS ORDERED: Ketorolac INJ* 30 MG/ML 1 ML VIAL ONE (12:00)
[2017-03-16] MEDS ORDERED: Propofol* 10 MG/ML 20 ML BTL IV PUSH ONE ×3 (12:00→14:36)
[2017-03-16] MEDS ORDERED: Ondansetron INJ* 2 MG/ML VIAL ONE ×2 (12:00→13:36)
[2017-03-16] MEDS ORDERED: Lidocaine 2% PF * 5 ML VIAL ONE ×2 (12:00→13:36)
[2017-03-16] MEDS ORDERED: Succinylcholine* 20 MG/ML 10 ML VIAL ONE (12:00)
[2017-03-16] MEDS ORDERED: DiMENhydriNATE IV* 50 MG/ML VIAL IV PUSH PRN (13:09)
[2017-03-16] MEDS ORDERED: KETAMINE HCL* 50 MG/ML 10 ML VIAL ONE ×2 (13:36→13:48)
[2017-03-16] MEDS ORDERED: Midazolam* 1 MG/ML 2 ML VIAL (2 MG) ONE (14:24)
[2017-03-16] MEDS ORDERED: Glycopyrrolate IV* 0.2 MG/ML 1 ML VIAL ONE (14:26)
[2017-03-16] MEDS ORDERED: EPHEDrine (Pressors)* 50 MG/ML VIAL ONE (14:40)
[2017-03-16] MEDS ORDERED: Bupivacaine 0.25% SDV* 30 ML ONE (14:51)
[2017-03-16] MEDS ORDERED: HYDROmorphone INJ* 1 MG/ML CARPUJECT SYRINGE ONE ×2 (15:42→16:35)
[2017-03-16] MEDS ORDERED: oxyCODONE/Acetamin 5/325 MG* TAB ONE (16:35)
[2017-03-16] MEDS: oxyCODONE/Acetamin 5/325 MG* TAB PO PRN ×2 (17:02→17:03)
[2017-03-16] MEDS: HYDROmorphone INJ* 1 MG/ML CARPUJECT SYRINGE IV PRN ×3 (17:02→18:01)
[2017-03-16 18:31] VITALS: BP 119/73
--- NOTE | 2017-03-16 18:49 | RAD ---
INDICATION: Traumatic fracture of the right shoulder operative reduction and internal fixation. COMPARISON: Comparison is made with a prior x-ray study of the right shoulder from March 11, 2017. TECHNIQUE: 79.4 seconds of intermittent fluoroscopic guidance were provided and 7 spot films of the right shoulder were obtained in the operating room. FINDINGS: The films demonstrate operative reduction and internal fixation of a comminuted fracture of the proximal right humerus. There is placement of a metallic plate along the lateral aspect of the proximal humerus spanning the fracture fragments transfixed with multiple screws. IMPRESSION: INTRAOPERATIVE CONTROL FILMS. CPT II Codes: 6045F
--- NOTE | 2017-03-24 08:31 | OP ---
DATE OF OPERATION: 03/16/17 [facility] DATE OF : 56 SURGEON: Genaro Jaing MD. CASTING ASSOCIATE: BARBRA Ren. ANESTHESIOLOGIST: Dr. Mota. ANESTHESIA: General. PRE-OP DIAGNOSIS: Right proximal humerus fracture. POSTOP DIAGNOSIS: Right proximal humerus fracture. OPERATIVE PROCEDURE: Right open reduction and internal fixation of the proximal humerus. COMPLICATIONS: None. ESTIMATED BLOOD LOSS: 150 cc. IMPLANTS USED: Synthes proximal humerus plate with the appropriate amount of locking and nonlocking screws. INDICATIONS: David Savage is a 56-year-old male who sustained a work-related injury on March 11 when he lost his balance and fell on to the lateral aspect of the shoulder. He was diagnosed with a proximal humerus fracture, that was mildly displaced. He has been taking pain medications. Due to the fact that he had limited motion of his left arm, it was decided that he should likely undergo treatment of the right shoulder as it is his only functional shoulder. He cannot raise his left arm above even to 90 degrees. After extensive discussion of the risks and benefits of operative versus nonoperative treatment, he has elected to proceed with operative treatment. Risks include, but are not limited to, bleeding, infection, damage to nerves, vessels, surrounding structures, wound nonhealing, persistent pain, need for further surgery, scarring, stiffness, incomplete relief of symptoms, risk of AVN, risk of hardware removal, risks of anesthesia, risks of DVT. He has elected to proceed. DESCRIPTION OF PROCEDURE: The patient was greeted in the preoperative area by the attending surgeon. Correct extremity was marked and consent was confirmed. The patient was then brought back to the operating suite where he was placed in the supine position on the operating table. He then underwent general anesthesia with endotracheal intubation, after which he was positioned appropriately in the bed. The hand table was brought to the table. The right shoulder was then prepped and draped in the usual sterile fashion beginning with chlorhexidine soap, scrub, and alcohol wipe and a final prep with ChloraPrep. After appropriate surgical pause indicating site, side, procedure, and administration of antibiotics, a deltopectoral incision was made sharply with a #15 blade. Soft tissues were carefully dissected to expose the cephalic vein, which was identified. The deltoid and the cephalic vein were retracted laterally. The pec was retracted medially. The fracture was readily available. The clavipectoral fascia was present. This was carefully incised and soft tissues were carefully dissected to expose the fracture. The biceps tendon was still intact and was used as a landmark to help with positioning. The fracture was then gently reduced and brought out to length. A 2.0 K-wire was used to help stabilize this. Two 2.0 K- wires were placed. This was confirmed under fluoroscopic visualization. The plate was then brought to the field and provisionally used to stabilize the humerus. Once it was appropriately positioned, the appropriate length screws were placed, beginning with a nonlocking screw along the shaft and then the locking screws were placed proximally once an adequate reduction was obtained. The screws were placed first proximally. Locking screws were placed in the head to grab as much of the bone as possible and then distally along the shaft. Final images were obtained and the shoulder was taken through range of motion and found to not have impingement. The wounds were copiously irrigated with sterile saline. The deltopectoral interval was then closed with 2-0 Tycron in interrupted fashion. The wound was closed in layers with 2-0 Vicryl and lina. The wounds were injected with 0.25% Marcaine plain. Sterile dressings were applied. He was placed in a regular sling and a cryocuff. He was awoken from anesthesia and transferred to PACU in stable condition. POSTOPERATIVE PLAN: He will be nonweightbearing for 6 weeks, he will be in the sling and allowed gentle pendulum as well as elbow, hand, and wrist range of motion. I will see him back in 10 to 14 days. We will start passive range of motion at that time. He will be discharged on pain medications. DVT prophylaxis considered, but deferred due to no previous personal or family history. I will see him back at that time. [id number]/[facility] #: [id number] STEVO
== END 2017-03-16 18:31 | disposition home or self-care (01) ==
LOC: OR 10:51
PROVIDERS: ATTEND Orthopaedic Surgery
DX: S42.201A Unspecified fracture of upper end of right humerus, initial encounter for closed fracture (principal); W18.30XA Fall on same level, unspecified, initial encounter; Y92.9 Unspecified place or not applicable; Z79.82 Long term (current) use of aspirin; Z87.891 Personal history of nicotine dependence
CPT/HCPCS: 76001; A9270-GY; C1713; C1776; J0330; J0690; J1100; J1170; J1885; J2250; J2405; J2704; J3010